=== PATIENT | male | born 1975 | race Caucasian/White ===

== ENCOUNTER 2021-09-06 13:44 | Emergency (ER) | payer OTHER ==
[2021-09-06 14:19] VITALS: TEMP 98.8
[2021-09-06] MEDS ORDERED: SODIUM CHLORIDE 0.9% 1,000 ML IV STA (15:37)
[2021-09-06] MEDS ORDERED: MORPHINE SULFATE 4 MG/ML SYRINGE IV STA (15:37)
[2021-09-06 16:20] LABS: Appearance,Urine Clear (Clear); Bilirubin,Urine Negative (Negative); Blood,Urine Negative (Negative); Color,Urine Yellow; Glucose,Urine (UA) 4+ (Negative); Hyaline Casts,Urine 10 /lpf (0-2); Leukocyte Esterase,Urine Negative (Negative); Mucus,Urine Few /hpf; Nitrite,Urine Negative (Negative); PH, Urine 5.5 (5.0-8.0); Protein,Urine 2+ (Negative); RBC,Urine <1 /hpf (0-5); Specific Gravity,Urine 1.045 (1.001-1.035); Squamous Epithelial Cell,Urine <1 /hpf (0-4); WBC,Urine 1 /hpf (0-5)
[2021-09-06 16:22] LABS: Ketones,Urine 4+ (Negative)
[2021-09-06 16:26] LABS: Basophils # (A) 0.1 k/uL (0-0.2); Basophils % (A) 0 %; Eosinophils # (A) 0.2 k/uL (0-0.7); Eosinophils % (A) 1 %; HCT 46.6 % (39.0-53.0); Lymphocytes # (A) 1.7 k/uL (1.0-4.8); Lymphocytes % (A) 13 %; MCH 31.5 pg (25.0-35.0); MCHC 34.3 g/dL (31.0-37.0); Mean Platelet Volume 8.6; Monocytes # (A) 0.7 k/uL (0-1.0); Monocytes % (A) 5 %; Neutrophils # (A) 10.8 k/uL (1.3-7.7); Neutrophils % (A) 80 %; Platelet Count 331 k/uL (150-450); RBC 5.07 m/uL (4.30-5.90); RDW 11.9 % (11.5-15.5); WBC 13.5 k/uL (3.8-10.6)
[2021-09-06 16:28] LABS: ALT 19 U/L (4-49); AST 19 U/L (17-59); African American GFR (CKD) >90 (>60 ml/min/1.73 sqM); Albumin 4.3 g/dL (3.5-5.0); Alkaline Phosphatase 113 U/L (38-126); Amylase 38 U/L (30-110); Anion Gap 14 mmol/L; Blood Urea Nitrogen 12 mg/dL (9-20); Calcium 10.1 mg/dL (8.4-10.2); Carbon Dioxide 19 mmol/L (22-30); Chloride 101 mmol/L (98-107); Glucose 277 mg/dL (74-99); Lipase 98 U/L (23-300); Non-African American GFR(CKD) >90 (>60 ml/min/1.73 sqM); Potassium 4.3 mmol/L (3.5-5.1); Sodium 134 mmol/L (137-145); Total Bilirubin 0.5 mg/dL (0.2-1.3); Total Protein 6.9 g/dL (6.3-8.2)
--- NOTE | 2021-09-06 16:48 | US ---
EXAMINATION TYPE: US scrotum with doppler. Grayscale and color Doppler Duplex imaging performed of t yumiko scrotum. DATE OF EXAM: 09/06/2021 COMPARISON: NONE CLINICAL HISTORY: testicular swelling. 2 weeks of testicular swelling, pain, no injury, recent diagno sis of pulmonary nodules, lost 30lbs in one month EXAM MEASUREMENTS: TESTICLES: Right Testicle: 3.6 x 3.2 x 2.0 cm Left Testicle: 4.0 x 3.1 x 2.0 cm EPIDIDYMIS HEAD: Right Epididymis: 0.9 cm Left Epididymis: 1.1 cm Doppler performed to assess for testicular vascularity; good bilateral color flow and waveforms are s een. There is no evidence of testicular torsion. Presence of hydroceles: bilateral, more on the left then right Presence of varicoceles: no IMPRESSION: No testicular torsion or mass. No evidence of epididymal mass. Bilateral hydroceles and larger on the left side.
--- NOTE | 2021-09-06 17:06 | XR ---
EXAMINATION TYPE: XR chest 2V DATE OF EXAM: 09/06/2021 COMPARISON: NONE HISTORY: Abdominal pain TECHNIQUE: 2 views FINDINGS: Heart and mediastinum are normal. Lungs are clear. Diaphragm is normal. Bony thorax appears normal. IMPRESSION: Normal chest
[2021-09-06] MEDS ORDERED: MORPHINE SULFATE 4 MG/ML SYRINGE IVP STA (17:23)
--- NOTE | 2021-09-06 18:00 | ED ---
General Adult HPI - General Chief complaint: Abdominal Pain Stated complaint: abd pain, weight loss Time Seen by Provider: 09/06/21 15:09 Source: patient, RN notes reviewed, old records reviewed Mode of arrival: ambulatory Limitations: no limitations - History of Present Illness Initial comments: Patient was evaluated when he was placed in a room. Patient is a 46-year-old male with past medical history remarkable for prior alcohol use, prior chronic tobacco use, GERD who presents emergency Department complaining of 1 month history of 30 pound weight loss, as well as abdominal pain. Abdominal pain comes and goes with no known provocative or palliative factors. Describes it as an achy, throbbing pain that is intermittent and sharp located over the left side of his abdomen. States he hasn't had much of an appetite. His decreased by mouth intake over this time. Is also complaining of bilateral testicular swelling over this period of time. Any testicular or penile pain. Denies any penile discharge. His no history of STI's or STDs. Denies any urinary complaints including dysuria or hematuria. Does endorse intermittent nausea, however no emesis. Denies diarrhea. Denies any chest pain, shortness of breath. Patient was evaluated yesterday at an outside hospital. CT imaging was obtained at that time and revealed findings concerning for possible cancer with metastasis. There are pulmonary nodules bilaterally laterally, multiple pancreatic lesions, multiple hepatic masses, diverticulosis without diverticulitis, as well as a small hypodense lesion within the spleen which is too small to accurately characterize. He states that he was given no follow-up information and is uncertain what to do with these findings. He presents today over concern for possible diagnosis of cancer as well as his abdominal pain. - Related Data Previous Rx's Medication Instructions Recorded Famotidine [Pepcid] 20 mg PO DAILY 30 Days #30 tablet 09/06/21 HYDROcodone/APAP 10-325MG [Beryl 1 tab PO Q6HR PRN 3 Days #12 tab 09/06/21 10-325] Ibuprofen [Motrin] 800 mg PO Q8H PRN 7 Days #21 tab 09/06/21 Ondansetron Odt [Zofran Odt] 4 mg PO Q8HR PRN 3 Days #9 tab 09/06/21 Allergies Allergy/AdvReac Type Severity Reaction Status Date / Time No Known Allergies Allergy Verified 09/06/21 14:19 Review of Systems ROS Statement: Those systems with pertinent positive or pertinent negative responses have been documented in the HPI. Review of Systems: CONST: Endorses weight loss EYES: Denies blurry vision ENT: Denies nasal congestion C/V: Denies Chest pain RESP: Denies shortness of breath GI: Endorses abdominal pain : Denies dysuria SKIN: Denies rash. MSK: Denies joint pain. NEURO: Denies headache ROS Other: All systems not noted in ROS Statement are negative. Past Medical History Past Medical History: GERD/Reflux History of Any Multi-Drug Resistant Organisms: None Reported Past Surgical History: Cholecystectomy Past Psychological History: No Psychological Hx Reported Smoking Status: Current every day smoker Past Alcohol Use History: None Reported Past Drug Use History: None Reported General Exam - General Exam Comments Initial Comments: General: Appears in mild distress secondary to abdominal discomfort. HEAD: Normal with no signs of head trauma. EYES: PERRLA, EOMI, conjunctiva normal, no discharge. ENT: Hearing grossly intact, normal oropharynx. RESPIRATORY: Clear breath sounds bilaterally. No wheezes, rales, or rhonchi. C/V: Regular rate and rhythm. S1 and S2 auscultated, no edema, peripheral pulses 2+ and intact throughout ABD: Abdomen soft, nondistended. Minimal tenderness palpation over the left upper and left lower quadrants. No guarding. No rebound tenderness. No peritoneal signs. EXT: Normal range of motion, no obvious deformity SKIN: No rashes or lesions observed on exposed skin. NEURO: Alert and oriented 4. Limitations: no limitations Course Vital Signs 09/06/21 09/06/21 14:15 18:23 Temperature 98.8 F Pulse Rate 99 81 Respiratory 19 18 Rate Blood Pressure 153/92 138/85 O2 Sat by Pulse 98 98 Oximetry Medical Decision Making - Medical Decision Making Based on the patient's presentation and physical exam, I am concerned for what appears to be metastatic cancer as evident by the outpatient CT imaging. Ultimately this patient does require workup by oncology however the patient has no follow-up and closest PCP appointment is in 1 month. He presents to discuss his options as well as for his abdominal pain. He states that his testicular swelling was never worked up. Therefore we will obtain basic laboratory studies, as well as scrotal ultrasound, chest x-ray. He'll be administered morphine for pain management as well as a 1 L fluid bolus. He was in agreement this plan. Laboratory studies are remarkable for a mild leukocytosis of 13. Patient has a mild hyperglycemia of 277. Patient's serum glucose is 4+ urine ketones is 4+. Urine protein is 2+. Acetones positive. There is no signs of anion gap acidosis at this time. This is all likely secondary to starvation ketosis. Patient's chest x-ray revealed no acute cardio pulmonary process. Scrotal ultrasound revealed bilateral hydroceles. On reevaluation, patient's exam is relatively unchanged. I stated I would like to discuss with his admitting physician as well as oncology. He was in agreement this plan. I spoke with Dr. Ramey, and he was in agreement that we can likely offer little at this time other than pain control. He likely a starvation ketosis and requires further outpatient workup of oncology. I spoke with oncology, Dr. márquez who took the patient's information, and will attempt to get him an appointment this week. Patient will be given his follow-up information to call the office tomorrow. Patient was in agreement this plan. I do believe it is safer in the discharge home at this time. I will provide the patient with a prescription for Beryl, ibuprofen, famotidine, Zofran ODT. Patient signed lets start talking opiate form.. I instructed the patient to follow up with their PCP in the next 3 days. I provided contact information for follow up with Dr. Márquez. I explained that the patient should return to the emergency department if they experience any worsening symptoms. Strict return precautions were discussed with the patient. The patient expressed understanding of these instructions. I answered all questions that the patient had. The patient was discharged home in fair condition with their prescriptions and follow up information. - Lab Data Result diagrams: 09/06/21 15:54 09/06/21 15:54 Lab Results 09/06/21 09/06/21 09/06/21 Range/Units 15:54 15:54 15:54 WBC 13.5 H (3.8-10.6) k/uL RBC 5.07 (4.30-5.90) m/uL Hgb 16.0 (13.0-17.5) gm/dL Hct 46.6 (39.0-53.0) % MCV 92.0 (80.0-100.0) fL MCH 31.5 (25.0-35.0) pg MCHC 34.3 (31.0-37.0) g/dL RDW 11.9 (11.5-15.5) % Plt Count 331 (150-450) k/uL MPV 8.6 Neutrophils % 80 % Lymphocytes % 13 % Monocytes % 5 % Eosinophils % 1 % Basophils % 0 % Neutrophils # 10.8 H (1.3-7.7) k/uL Lymphocytes # 1.7 (1.0-4.8) k/uL Monocytes # 0.7 (0-1.0) k/uL Eosinophils # 0.2 (0-0.7) k/uL Basophils # 0.1 (0-0.2) k/uL Sodium 134 L (137-145) mmol/L Potassium 4.3 (3.5-5.1) mmol/L Chloride 101 (98-107) mmol/L Carbon Dioxide 19 L (22-30) mmol/L Anion Gap 14 mmol/L BUN 12 (9-20) mg/dL Creatinine 0.51 L (0.66-1.25) mg/dL Est GFR (CKD-EPI)AfAm >90 (>60 ml/min/1.73 sqM) Est GFR (CKD-EPI)NonAf >90 (>60 ml/min/1.73 sqM) Glucose 277 H (74-99) mg/dL Plasma Lactic Acid Luis Alfredo (0.7-2.0) mmol/L Calcium 10.1 (8.4-10.2) mg/dL Total Bilirubin 0.5 (0.2-1.3) mg/dL AST 19 (17-59) U/L ALT 19 (4-49) U/L Alkaline Phosphatase 113 (38-126) U/L Total Protein 6.9 (6.3-8.2) g/dL Albumin 4.3 (3.5-5.0) g/dL Amylase 38 (30-110) U/L Lipase 98 (23-300) U/L Urine Color Yellow Urine Appearance Clear (Clear) Urine pH 5.5 (5.0-8.0) Ur Specific [place] 1.045 H (1.001-1.035) Urine Protein 2+ H (Negative) Urine Glucose (UA) 4+ H (Negative) Urine Ketones 4+ H (Negative) Urine Blood Negative (Negative) Urine Nitrite Negative (Negative) Urine Bilirubin Negative (Negative) Urine Urobilinogen 2.0 (<2.0) mg/dL Ur Leukocyte Esterase Negative (Negative) Urine RBC <1 (0-5) /hpf Urine WBC 1 (0-5) /hpf Ur Squamous Epith Cells <1 (0-4) /hpf Hyaline Casts 10 H (0-2) /lpf Urine Mucus Few H (None) /hpf Acetone, Qual (Negative) 09/06/21 09/06/21 Range/Units 15:54 15:54 WBC (3.8-10.6) k/uL RBC (4.30-5.90) m/uL Hgb (13.0-17.5) gm/dL Hct (39.0-53.0) % MCV (80.0-100.0) fL MCH (25.0-35.0) pg MCHC (31.0-37.0) g/dL RDW (11.5-15.5) % Plt Count (150-450) k/uL MPV Neutrophils % % Lymphocytes % % Monocytes % % Eosinophils % % Basophils % % Neutrophils # (1.3-7.7) k/uL Lymphocytes # (1.0-4.8) k/uL Monocytes # (0-1.0) k/uL Eosinophils # (0-0.7) k/uL Basophils # (0-0.2) k/uL Sodium (137-145) mmol/L Potassium (3.5-5.1) mmol/L Chloride (98-107) mmol/L Carbon Dioxide (22-30) mmol/L Anion Gap mmol/L BUN (9-20) mg/dL Creatinine (0.66-1.25) mg/dL Est GFR (CKD-EPI)AfAm (>60 ml/min/1.73 sqM) Est GFR (CKD-EPI)NonAf (>60 ml/min/1.73 sqM) Glucose (74-99) mg/dL Plasma Lactic Acid Luis Alfredo 0.8 (0.7-2.0) mmol/L Calcium (8.4-10.2) mg/dL Total Bilirubin (0.2-1.3) mg/dL AST (17-59) U/L ALT (4-49) U/L Alkaline Phosphatase (38-126) U/L Total Protein (6.3-8.2) g/dL Albumin (3.5-5.0) g/dL Amylase (30-110) U/L Lipase (23-300) U/L Urine Color Urine Appearance (Clear) Urine pH (5.0-8.0) Ur Specific [place] (1.001-1.035) Urine Protein (Negative) Urine Glucose (UA) (Negative) Urine Ketones (Negative) Urine Blood (Negative) Urine Nitrite (Negative) Urine Bilirubin (Negative) Urine Urobilinogen (<2.0) mg/dL Ur Leukocyte Esterase (Negative) Urine RBC (0-5) /hpf Urine WBC (0-5) /hpf Ur Squamous Epith Cells (0-4) /hpf Hyaline Casts (0-2) /lpf Urine Mucus (None) /hpf Acetone, Qual Positive (Negative) Disposition Clinical Impression: Liver mass, Pulmonary nodules, Weight loss, Abdominal pain, Ketosis Disposition: HOME SELF-CARE Condition: Fair Instructions (If sedation given, give patient instructions): Abdominal Pain (ED) Additional Instructions: Call Dr. Márquez's office to set up out patient evaluation. Prescriptions: Ibuprofen [Motrin] 800 mg PO Q8H PRN 7 Days #21 tab PRN Reason: Pain HYDROcodone/APAP 10-325MG [Beryl 10-325] 1 tab PO Q6HR PRN 3 Days #12 tab PRN Reason: Pain Famotidine [Pepcid] 20 mg PO DAILY 30 Days #30 tablet Ondansetron Odt [Zofran Odt] 4 mg PO Q8HR PRN 3 Days #9 tab PRN Reason: Nausea Is patient prescribed a controlled substance at d/c from ED?: Yes If prescribed controlled substance>3 days was MAPS reviewed?: Prescribed <3 Days Referrals: Ezequiel Carballo MD [Primary Care Provider] - 1-2 days Mireya Márquez MD [STAFF PHYSICIAN] - 1-2 days
[2021-09-06 18:23] VITALS: BP 138/85; PULSE 81; RESP 18
[2021-09-07 02:57] LABS: Cancer Antigen 153 59.8 U/mL (0.0-32.3)
== END 2021-09-06 18:36 | disposition home or self-care (01) ==
LOC: EC 13:44
DX: R10.12 Left upper quadrant pain (principal); R10.32 Left lower quadrant pain; E88.89 Other specified metabolic disorders; R16.0 Hepatomegaly, not elsewhere classified; R91.1 Solitary pulmonary nodule; K21.9 Gastro-esophageal reflux disease without esophagitis; F17.200 Nicotine dependence, unspecified, uncomplicated; Z90.49 Acquired absence of other specified parts of digestive tract; Z79.1 Long term (current) use of non-steroidal anti-inflammatories (NSAID); Z79.899 Other long term (current) drug therapy
CPT/HCPCS: 36415; 84153; 80053; 86300; 86304; 82150; 82009; 83605; 83690; 85025; 81001; 86301; 71046; 93975; 76870; 99284; 96374; 96376; J2270

== ENCOUNTER → 2021-09-19 | Outpatient (CLI) | payer OTHER ==
--- NOTE | 2021-09-19 08:44 | CT ---
EXAMINATION TYPE: CT chest w con DATE OF EXAM: 09/19/2021 COMPARISON: Radiograph 09/06/2021. Correlation outside CT abdomen and pelvis 09/05/2021. HISTORY: 46-year-old male C80.1, Z03.89 mets, cancer TECHNIQUE: Contiguous axial scanning of the chest after the administration of 100 mL of Isovue 300. Coronal/sagittal reconstructions performed. CT DLP: 469mGycm. Automatic exposure control utilized for a dose reduction. FINDINGS: Heart is normal size with trace anterior pericardial fluid. Aorta normal caliber with conventional branching anatomy. No mediastinal lymphadenopathy by CT size criteria. Irregular elongated mass in the medial right upper lobe measuring 4.5 cm craniocaudal by 4.1 cm AP by 1.5 cm wide (reference axial image 14 and coronal image 38). This abuts the medial right upper lobe pleural surface. Mild centrilobular emphysema. Innumerable nodules many of which are cavitary measuring up to 9 mm. This largest lesion is present a t the posterior right base on axial image 46 and previously measured 8 mm. Some of the more solid nod ule seen previously show some increasing cavitary change. Dominant left lobe mass measures 3.9 cm, not significantly changed. Approximately 5 other smaller hep atic lesions are redemonstrated. Cystic lesion of the pancreatic neck redemonstrated measuring 4.7 cm, not significantly changed. Rede monstrated is dilatation of the main pancreatic duct. Cholecystectomy clips. Possible inferior pancre atic head mass seen on outside 09/05/2021 CT guided included in the exam. Bones: No osseous destructive process is identified. IMPRESSION: 1. Numerous small cavitary pulmonary nodules bilaterally, largest measuring 9 mm. Many of the smaller solid nodules seen on the outside CT abdomen and pelvis of 09/05/2021 show increasing cavitary change . While atypical mycobacterial/fungal infections and Langerhans cell histiocytosis are in the differe ntial, given the 6 liver lesions and possible pancreatic head lesion on the outside 09/05/2021 CT abdo men, metastatic disease should be considered. 2. In addition, there is an irregular 4.5 x 4.1 x 1.5 cm mass medial right upper lobe. 3. COPD with mild emphysema.
== END | disposition home or self-care (01) ==
LOC: RADCTMAIN 07:48
PROVIDERS: ATTEND Internal Medicine Hematology & Oncology
DX: C80.1 Malignant (primary) neoplasm, unspecified (principal); J43.2 Centrilobular emphysema; R91.8 Other nonspecific abnormal finding of lung field
CPT/HCPCS: 71260; Q9967

== ENCOUNTER 2021-09-22 08:35 | Day surgery (SDC) | payer OTHER ==
[~2021-09-22 08:35] MED LIST: ALPRAZolam 0.5 MG TAB PO PRN; HYDROmorphone 0.5 MG/0.5 ML SYRINGE IVP PRN
[2021-09-22 09:32] LABS: Mean Platelet Volume 8.7; Platelet Count 345 k/uL (150-450)
[2021-09-22 09:45] LABS: INR 0.9 (<1.2); Prothrombin Time 9.7 sec (9.0-12.0)
[2021-09-22 10:20] VITALS: TEMP 98.1
[2021-09-22 11:22] VITALS: RESP 16
--- NOTE | 2021-09-22 11:55 | CT ---
EXAMINATION TYPE: CT biopsy liver DATE OF EXAM: 09/22/2021 COMPARISON: NONE HISTORY: Right lobe hepatic lesion requested for biopsy CT DLP: 2242mGycm The procedure was explained to the patient. The risks, complications, benefits, and alternatives wer e discussed and any questions were answered. Informed consent was obtained. Patient was placed supi ne on the CT table and prepped and draped in the usual sterile fashion. All elements of maximal barrier and sterile technique utilized. Utilizing CT guidance, an 18 gauge core biopsy needle access into the posterior segment right lobe o f the liver was achieved and a two 18 gauge core samples were obtained. The patient was stable throu ghout the procedure and remained stable upon discharge. IMPRESSION: 1. Successful 18 gauge core biopsy of the liver.
[2021-09-22 13:34] VITALS: BP 118/74
[2021-09-22 14:18] VITALS: PULSE 86
== END 2021-09-22 15:00 | disposition home or self-care (01) ==
LOC: RADPROMAIN 08:35
PROVIDERS: ATTEND Internal Medicine Hematology & Oncology
DX: C22.7 Other specified carcinomas of liver (principal)
CPT/HCPCS: 88305; 88173; 85049; 85610; 88342; 88307; 88341; 36415; 47000; 77012; J1170

== ENCOUNTER → 2022-01-13 | Outpatient (CLI) | payer OTHER ==
--- NOTE | 2022-01-13 12:30 | US ---
EXAMINATION TYPE: US venous doppler duplex LE LT DATE OF EXAM: 01/13/2022 12:24 PM COMPARISON: NONE CLINICAL HISTORY: M79.662 Pain in left lower limb, R22.42 Swelling of left low. Swelling left leg, no known prior DVT, pt currently on chemo for pancreatic CA SIDE PERFORMED: Left TECHNIQUE: The lower extremity deep venous system is examined utilizing real time linear array sonog armando with graded compression, doppler sonography and color-flow sonography. VESSELS IMAGED: Common Femoral Vein Deep Femoral Vein Greater Saphenous Vein * Femoral Vein Popliteal Vein Small Saphenous Vein * Proximal Calf Veins (* superficial vessels) Left Leg: Negative for DVT Attempted to call Dr's office with results at time of exam, no answer Grayscale, color doppler, spectral doppler imaging performed of the deep veins of the left lower extr emity. There is normal flow, compressibility, vascular waveforms. IMPRESSION: No ultrasound evidence for acute DVT in the left lower extremity.
== END | disposition home or self-care (01) ==
LOC: RADUSWWP 12:02
PROVIDERS: ATTEND Internal Medicine Hematology & Oncology
DX: R22.42 Localized swelling, mass and lump, left lower limb (principal)

== ENCOUNTER → 2022-03-01 | Outpatient (CLI) | payer OTHER ==
[2022-03-01 14:17] LABS: African American GFR (CKD) >90 (>60 ml/min/1.73 sqM); Blood Urea Nitrogen 10 mg/dL (9-20); Non-African American GFR(CKD) >90 (>60 ml/min/1.73 sqM)
--- NOTE | 2022-03-02 11:12 | CT ---
EXAMINATION TYPE: CT ChestAbdPelvis w con DATE OF EXAM: 03/01/2022 INDICATION: pancreatic ca COMPARISON: 09/19/2021 CT DLP: 1163 mGycm CONTRAST: Performed with Oral Contrast and with IV Contrast, patient injected with 100ml mL of Isovue 300. TECHNIQUE: Axial images at 5 mm thick sections. Reconstructed images in the coronal plane. Delayed images through the kidneys. FINDINGS: CT CHEST: Portion of the thyroid visualized is normal. There is a 0.6 cm nodule posterior right lung base. A small spiculated ring area is in the posterior right lung measuring 0.8 cm. Series 3 image 44. Pleural-based nodules in the posterior medial right l thanh measuring 0.6 cm. Series 3 image 40. There are multiple additional peripheral nodules measuring l ess than 1 cm each through the bilateral lung dao suspicious for metastatic disease. These are les s distinct than the comparison of 09/19/2021. These may be somewhat smaller than comparison. Within the mediastinal border right upper lobe on the previous large mass has diminished in size curr ently measuring 2.0 cm. No enlarged mediastinal or hilar adenopathy is evident. The ascending aorta diameter at the level of the main pulmonary artery is 3.1 cm. The main pulmonary artery diameter at the bifurcation is 2.[address] ABDOMEN: Liver: a the subtle hypodensity within the posterior lateral right lobe liver appear smaller and less distinct than comparison. Spleen: Normal Pancreas: Pancreatic duct stent is present. There is a dilated pancreatic duct present. Some hypodens ities adjacent may be a pseudocyst or cyst from the neoplasm measuring 3.1 cm. Example image series 3 image 65. This was present previously and is smaller. Adrenal glands: There may be some subtle fullness of the left adrenal gland compared to the right. Th is may be a change from comparison. Gallbladder: Normal Kidneys: No masses are evident. No hydronephrosis is present. No cysts are present. Delayed images were obtained through the kidneys, which remain unremarkable. Aorta: Normal Inferior vena cava: Normal. CT PELVIS: Loops of bowel within the abdomen and pelvis are normal. Large fecal bolus in the rectum. There ar e loops of bowel which are incompletely distended or lack oral contrast limiting their evaluation. Appendix: Not identified. No dilated tubular structure or inflammatory change is evident. Urinary bladder: Normal. Genitourinary structures: Prostate is somewhat prominent. Osseous structures: No suspicious lytic or sclerotic lesions. IMPRESSIONS: 1. Multiple scattered nodules within the lung field suspicious for metastatic disease appears somewha t smaller than the comparison study. No enlarging or new lung lesions. Previous right mediastinal bor sapphire density is significantly diminished over the interval currently measuring 2.0 cm. 2. Diminished cyst size within the head of the pancreas. Pancreatic duct remains prominent and pancre atic stent is present.
== END | disposition home or self-care (01) ==
LOC: RADCTMAIN 13:24
PROVIDERS: ATTEND Internal Medicine Hematology & Oncology
DX: C25.9 Malignant neoplasm of pancreas, unspecified (principal); R91.8 Other nonspecific abnormal finding of lung field; J98.4 Other disorders of lung; K86.2 Cyst of pancreas
CPT/HCPCS: 82565; 84520; 71260; 74177; 36415; Q9967 ×2

== ENCOUNTER 2022-05-09 19:53 | Emergency (ER) | payer OTHER ==
[2022-05-09 20:37] VITALS: TEMP 99.2
[2022-05-09] MEDS ORDERED: SODIUM CHLORIDE 0.9% 1,000 ML IV STA (20:54)
[2022-05-09] MEDS ORDERED: PANTOPRAZOLE 40 MG/10 ML VIAL IVP STA (20:54)
[2022-05-09] MEDS ORDERED: ONDANSETRON 4 MG/2 ML VIAL IVP STA (20:54)
[2022-05-09] MEDS ORDERED: HYDROmorphone 1 MG/ML 1 ML SYRINGE IVP STA ×4 (20:55→23:26)
--- NOTE | 2022-05-09 21:07 | ED ---
GI Bleed HPI - General Chief complaint: GI Bleed Stated complaint: GI Bleed Time Seen by Provider: 05/09/22 20:47 Source: patient, RN notes reviewed Mode of arrival: ambulatory Limitations: no limitations - History of Present Illness Initial comments: This is a pleasant 46-year-old male with a history of pancreatic cancer which has metastasized. Patient presents after having an episode of bloody vomitus and 5 or 6 episodes of dark red blood in his stool. This started last night when the patient had some epigastric discomfort. It occurred again today. Patient was seen at [facility] and was transferred here by private vehicle. Patient complaining of discomfort in the epigastric area as well as minimal nausea at this time. Vision undergoing chemotherapy for pancreatic cancer. Patient had a CT of the abdomen and pelvis done at [facility] as well as blood work done. No headache, no fever or chills, no changes in vision or hearing, no sore throat or difficulty with speech, no neck pain, no chest pain or shortness of breath, no changes in urination no numbness or tingling, no extremity pain, no skin rashes or lesions. Past medical, surgical, social, and family history reviewed. Patient states he's never had a GI bleed before. Patient previously was a fairly heavy alcohol user but has not used recently. - Related Data Home Medications Medication Instructions Recorded Confirmed Insulin Glargine,Hum.rec.anlog 4 - 5 units SQ HS 05/09/22 05/09/22 [Lantus Solostar Pen] Mag Hydrox/Aluminum Hyd/Simeth 10 ml PO Q6H PRN 05/09/22 05/09/22 [Mylanta Maximum Strength Liq] Omeprazole 40 mg PO DAILY 05/09/22 05/09/22 Sennosides/Docusate Sodium [Senna 1 tab PO BID 05/09/22 05/09/22 Plus 8.6-50 mg Tablet] Simethicone [Gas-X] 125 mg PO QID 05/09/22 05/09/22 fentaNYL 100MCG/HR PATCH 1 patch TRANSDERM Q48H 05/09/22 05/09/22 [Duragesic 100MCG/HR] fentaNYL 50MCG/HR PATCH [Duragesic 1 patch TRANSDERM Q48H 05/09/22 05/09/22 50MCG/HR] oxyCODONE HCL [Oxycodone HCl] 30 mg PO Q3H 05/09/22 05/09/22 Allergies Allergy/AdvReac Type Severity Reaction Status Date / Time No Known Allergies Allergy Verified 05/09/22 22:02 Review of Systems ROS Statement: Those systems with pertinent positive or pertinent negative responses have been documented in the HPI. ROS Other: All systems not noted in ROS Statement are negative. Past Medical History Past Medical History: Cancer, GERD/Reflux Additional Past Medical History / Comment(s): liver, pancreas, spleen and lung mass being booked for biopsy, abdominal hernia not repaired History of Any Multi-Drug Resistant Organisms: None Reported Past Surgical History: Cholecystectomy Additional Past Surgical History / Comment(s): nasal polyp removed Past Anesthesia/Blood Transfusion Reactions: No Reported Reaction Additional Past Anesthesia/Blood Transfusion Reaction / Comment(s): no previous blood transfusion Past Psychological History: No Psychological Hx Reported Smoking Status: Current every day smoker Past Alcohol Use History: Heavy Past Drug Use History: Marijuana - Past Family History Mother Family Medical History: Cancer Additional Family Medical History / Comment(s): basal cell skin General Exam - General Exam Comments Initial Comments: Frail appearing 46-year-old male in minimal distress. No signs stable, patient afebrile Limitations: no limitations General appearance: alert, in no apparent distress Head exam: Present: atraumatic, normocephalic, normal inspection Eye exam: Present: normal appearance, PERRL, EOMI. Absent: scleral icterus, conjunctival injection, periorbital swelling ENT exam: Present: normal exam, mucous membranes moist Neck exam: Present: normal inspection, full ROM. Absent: tenderness, meningismus, lymphadenopathy Respiratory exam: Present: normal lung sounds bilaterally. Absent: respiratory distress, wheezes, rales, rhonchi, stridor Cardiovascular Exam: Present: regular rate, normal rhythm, normal heart sounds. Absent: systolic murmur, diastolic murmur, rubs, gallop, clicks GI/Abdominal exam: Present: soft, tenderness (Tenderness in epigastrium), guarding, normal bowel sounds. Absent: distended, rebound, rigid Rectal exam: Present: normal rectal tone, heme (+) stool, bloody stool Extremities exam: Present: normal inspection, full ROM, normal capillary refill. Absent: tenderness, pedal edema, joint swelling, calf tenderness Back exam: Present: normal inspection Neurological exam: Present: alert, oriented X3, CN II-XII intact Psychiatric exam: Present: normal affect, normal mood Skin exam: Present: warm, dry, intact, normal color. Absent: rash Course Vital Signs 05/09/22 05/09/22 20:35 22:00 Temperature 99.2 F Pulse Rate 82 74 Respiratory 18 8 L Rate Blood Pressure 125/84 114/72 O2 Sat by Pulse 98 96 Oximetry - Consultations Consultation #1: This discussed with Dr. Hawk from [facility]. Patient will be transferred ER to ER transfer. Patient Hemovac after stable for transfer. Medical Decision Making - Medical Decision Making Patient sees Dr. Boggs for cancer care through [facility]. Patient has been cared for at this facility. Patient had a computed tomography scan done and [facility] this morning that shows multiple lung base nodule suspicious for metastatic disease, suspected metastases to the liver, stable clearing cystlike area within the body of the pancreas and prominence of the bile duct at the body of the pancreas, findings compatible with the patient's known pancreatic cancer. Hemoglobin was 11.0, hematocrit 32.8. There is no CBC here to compare this to. His white blood cell count was 17,000. 13,000 neutrophils. Patient received 1 unit of packed red blood cells at [facility] prior to being transferred by private vehicle The case was discussed in detail with ED attending physician. Presentation, findings, treatment plan discussed in detail. We'll discuss the case with the on-call surgeon. Heart he warn the patient that he may need to be transferred again as there is no gastroenterology coverage here. Case was discussed with the on-call surgeon who requests transfer to a tertiary facility that has gastroenterology coverage. Patient was given Protonix here. Hemoglobin rechecked. Pain medication. We'll touch base with [facility] for ER to ER transfer. - Lab Data Result diagrams: 05/09/22 21:20 05/09/22 21:20 Lab Results 05/09/22 05/09/22 05/09/22 Range/Units 20:55 21:10 21:20 WBC 10.7 H (3.8-10.6) k/uL RBC 3.17 L (4.30-5.90) m/uL Hgb 10.0 L (13.0-17.5) gm/dL Hct 30.5 L (39.0-53.0) % MCV 96.0 (80.0-100.0) fL MCH 31.5 (25.0-35.0) pg MCHC 32.8 (31.0-37.0) g/dL RDW 14.1 (11.5-15.5) % Plt Count 196 (150-450) k/uL MPV 7.8 Neutrophils % 86 % Lymphocytes % 6 % Monocytes % 7 % Eosinophils % 1 % Basophils % 0 % Neutrophils # 9.2 H (1.3-7.7) k/uL Lymphocytes # 0.6 L (1.0-4.8) k/uL Monocytes # 0.7 (0-1.0) k/uL Eosinophils # 0.1 (0-0.7) k/uL Basophils # 0.0 (0-0.2) k/uL PT (9.0-12.0) sec INR (<1.2) APTT (22.0-30.0) sec Sodium (137-145) mmol/L Potassium (3.5-5.1) mmol/L Chloride (98-107) mmol/L Carbon Dioxide (22-30) mmol/L Anion Gap mmol/L BUN (9-20) mg/dL Creatinine (0.66-1.25) mg/dL Est GFR (CKD-EPI)AfAm (>60 ml/min/1.73 sqM) Est GFR (CKD-EPI)NonAf (>60 ml/min/1.73 sqM) Glucose (74-99) mg/dL Plasma Lactic Acid Luis Alfredo (0.7-2.0) mmol/L Calcium (8.4-10.2) mg/dL Total Bilirubin (0.2-1.3) mg/dL AST (17-59) U/L ALT (4-49) U/L Alkaline Phosphatase (38-126) U/L Troponin I (0.000-0.034) ng/mL Total Protein (6.3-8.2) g/dL Albumin (3.5-5.0) g/dL Lipase (23-300) U/L Stool Occult Blood Positive (Negative) Blood Type O Negative Blood Type Confirm Blood Type Recheck No Previous Record Bld Type Recheck Status CABO Indicated Antibody Screen NEGATIVE Spec Expiration Date 05/12/2022 - 235405/09/22 05/09/22 05/09/22 Range/Units 21:20 21:20 21:20 WBC (3.8-10.6) k/uL RBC (4.30-5.90) m/uL Hgb (13.0-17.5) gm/dL Hct (39.0-53.0) % MCV (80.0-100.0) fL MCH (25.0-35.0) pg MCHC (31.0-37.0) g/dL RDW (11.5-15.5) % Plt Count (150-450) k/uL MPV Neutrophils % % Lymphocytes % % Monocytes % % Eosinophils % % Basophils % % Neutrophils # (1.3-7.7) k/uL Lymphocytes # (1.0-4.8) k/uL Monocytes # (0-1.0) k/uL Eosinophils # (0-0.7) k/uL Basophils # (0-0.2) k/uL PT 11.8 (9.0-12.0) sec INR 1.1 (<1.2) APTT 24.5 (22.0-30.0) sec Sodium 131 L (137-145) mmol/L Potassium 4.8 (3.5-5.1) mmol/L Chloride 102 (98-107) mmol/L Carbon Dioxide 23 (22-30) mmol/L Anion Gap 6 mmol/L BUN 20 (9-20) mg/dL Creatinine 0.52 L (0.66-1.25) mg/dL Est GFR (CKD-EPI)AfAm >90 (>60 ml/min/1.73 sqM) Est GFR (CKD-EPI)NonAf >90 (>60 ml/min/1.73 sqM) Glucose 109 H (74-99) mg/dL Plasma Lactic Acid Luis Alfredo 0.7 (0.7-2.0) mmol/L Calcium 8.4 (8.4-10.2) mg/dL Total Bilirubin 1.6 H (0.2-1.3) mg/dL AST 336 H (17-59) U/L ALT 318 H (4-49) U/L Alkaline Phosphatase 570 H (38-126) U/L Troponin I (0.000-0.034) ng/mL Total Protein 5.0 L (6.3-8.2) g/dL Albumin 2.6 L (3.5-5.0) g/dL Lipase <10 L (23-300) U/L Stool Occult Blood (Negative) Blood Type Blood Type Confirm Blood Type Recheck Bld Type Recheck Status Antibody Screen Spec Expiration Date 05/09/22 05/09/22 Range/Units 21:20 21:20 WBC (3.8-10.6) k/uL RBC (4.30-5.90) m/uL Hgb (13.0-17.5) gm/dL Hct (39.0-53.0) % MCV (80.0-100.0) fL MCH (25.0-35.0) pg MCHC (31.0-37.0) g/dL RDW (11.5-15.5) % Plt Count (150-450) k/uL MPV Neutrophils % % Lymphocytes % % Monocytes % % Eosinophils % % Basophils % % Neutrophils # (1.3-7.7) k/uL Lymphocytes # (1.0-4.8) k/uL Monocytes # (0-1.0) k/uL Eosinophils # (0-0.7) k/uL Basophils # (0-0.2) k/uL PT (9.0-12.0) sec INR (<1.2) APTT (22.0-30.0) sec Sodium (137-145) mmol/L Potassium (3.5-5.1) mmol/L Chloride (98-107) mmol/L Carbon Dioxide (22-30) mmol/L Anion Gap mmol/L BUN (9-20) mg/dL Creatinine (0.66-1.25) mg/dL Est GFR (CKD-EPI)AfAm (>60 ml/min/1.73 sqM) Est GFR (CKD-EPI)NonAf (>60 ml/min/1.73 sqM) Glucose (74-99) mg/dL Plasma Lactic Acid Luis Alfredo (0.7-2.0) mmol/L Calcium (8.4-10.2) mg/dL Total Bilirubin (0.2-1.3) mg/dL AST (17-59) U/L ALT (4-49) U/L Alkaline Phosphatase (38-126) U/L Troponin I <0.012 (0.000-0.034) ng/mL Total Protein (6.3-8.2) g/dL Albumin (3.5-5.0) g/dL Lipase (23-300) U/L Stool Occult Blood (Negative) Blood Type Blood Type Confirm O Negative Blood Type Recheck Bld Type Recheck Status Antibody Screen Spec Expiration Date Disposition Clinical Impression: Acute gastrointestinal bleeding Narrative: History of metastatic pancreatic cancer with metastases to liver and lung Disposition: OTHER INSTITUTION NOT DEFINED Condition: Stable Time of Disposition: 22:27 - Out of Hospital Transfer - Req. Specs Out of Hospital Transfer - Requested Specifics: Other Emergency Center ([facility])
[2022-05-09 21:43] LABS: Basophils % (A) 0 %; Eosinophils # (A) 0.1 k/uL (0-0.7); Eosinophils % (A) 1 %; HCT 30.5 % (39.0-53.0); Lymphocytes # (A) 0.6 k/uL (1.0-4.8); Lymphocytes % (A) 6 %; MCH 31.5 pg (25.0-35.0); MCHC 32.8 g/dL (31.0-37.0); Mean Platelet Volume 7.8; Monocytes # (A) 0.7 k/uL (0-1.0); Monocytes % (A) 7 %; Neutrophils # (A) 9.2 k/uL (1.3-7.7); Neutrophils % (A) 86 %; Platelet Count 196 k/uL (150-450); RBC 3.17 m/uL (4.30-5.90); RDW 14.1 % (11.5-15.5); WBC 10.7 k/uL (3.8-10.6)
[2022-05-09 21:53] LABS: AST 336 U/L (17-59); African American GFR (CKD) >90 (>60 ml/min/1.73 sqM); Albumin 2.6 g/dL (3.5-5.0); Anion Gap 6 mmol/L; Blood Urea Nitrogen 20 mg/dL (9-20); Calcium 8.4 mg/dL (8.4-10.2); Carbon Dioxide 23 mmol/L (22-30); Chloride 102 mmol/L (98-107); Glucose 109 mg/dL (74-99); Non-African American GFR(CKD) >90 (>60 ml/min/1.73 sqM); Potassium 4.8 mmol/L (3.5-5.1); Sodium 131 mmol/L (137-145); Total Bilirubin 1.6 mg/dL (0.2-1.3)
[2022-05-09 21:55] LABS: INR 1.1 (<1.2); Partial Thromboplastin Time 24.5 sec (22.0-30.0); Prothrombin Time 11.8 sec (9.0-12.0)
[2022-05-09 21:57] LABS: ALT 318 U/L (4-49); Alkaline Phosphatase 570 U/L (38-126); Lipase <10 U/L (23-300)
[2022-05-09] MEDS ORDERED: LORazepam 2 MG/ML INJ IV STA (23:27)
[2022-05-10 00:09] VITALS: BP 125/98; PULSE 73; RESP 11
== END 2022-05-10 00:14 | disposition other institution (70) ==
LOC: EC 19:53
DX: K92.2 Gastrointestinal hemorrhage, unspecified (principal); K21.9 Gastro-esophageal reflux disease without esophagitis; F17.200 Nicotine dependence, unspecified, uncomplicated; F12.90 Cannabis use, unspecified, uncomplicated; Z79.899 Other long term (current) drug therapy
CPT/HCPCS: 36415; 86900; 86901; 80053; 83605; 83690; 84484; 85025; 85610; 85730; 86850; 82272; 99285; 96374; 96375 ×5; 96361 ×3; J2060; J2405; J1170; C9113